=== PATIENT | female | born 1975 | race Caucasian/White ===

== ENCOUNTER 2024-12-22 13:35 | Inpatient (IN) ==
[2024-12-22 14:12] LABS: Basophils # (auto) 0.05 K/uL (0.00-0.20); Basophils % (auto) 0.6 %; Eosinophils # (auto) 0.03 K/uL (0.00-0.50); Eosinophils % (auto) 0.3 %; Hemoglobin 13.8 g/dl (12.0-16.0); Immature Granulocytes # (auto) 0.02 K/uL (0.01-0.20); Immature Granulocytes % (auto) 0.2 %; Lymphocytes % (auto) 22.1 %; Mean Corpuscular Hemoglobin 37.8 pg (25.0-34.0); Mean Corpuscular Hgb Conc 36.3 g/dL (32.0-36.0); Mean Corpuscular Volume 104.1 fL (80.0-100.0); Mean Platelet Volume 10.8 fL (9.4-12.4); Monocytes # (auto) 0.76 K/uL (0.11-0.59); Monocytes % (auto) 8.8 %; Neutrophils # (auto) 5.83 K/uL (1.40-6.50); Platelet Count 205 K/uL (130-400); RDW Coefficient of Variation 11.7 % (11.5-14.5); RDW Standard Deviation 44.9 fL (36.4-46.3); Red Blood Count 3.65 M/uL (4.20-5.40); White Blood Count 8.59 K/ul (4.8-10.8)
--- NOTE | 2024-12-22 14:27 | Emergency Department Note ---
Impression & Plan Abdominal ascites, Cirrhosis of liver, Hypokalemia, Acute hyponatremia ED Provider Note Provider: Nikolay Bates MD CHIEF COMPLAINT: Abdominal swelling HISTORY OF PRESENT ILLNESS: Patient is a 49-year-old female presenting today stating of the past 2 weeks she has had significant increase of abdominal swelling. No abdominal pain or nausea or vomiting or diarrhea. No trauma. No swelling of the legs or arms. Denies chest pain. States maybe with little exertion may be slightly more short of breath than normal. Denies history of prior abdominal swelling like this. No fevers or cough or cold reported. Was seen by her primary doctor about 3 weeks ago for bronchitis and this has resolved. History of alcohol use but states has been sober for the past 42 days. Again denies any abdominal pain. Little bit of early satiety with food intake reported. Has not been measuring her weights. Was an antibiotic and steroid for bronchitis in the middle of November. PAST MEDICAL HISTORY: As noted above MEDICATIONS: Reviewed home medications includes multiple vitamins/supplements SOCIAL HISTORY: Ports history of alcohol abuse but states she has been sober for the past 42 days. PHYSICAL EXAM: GENERAL: alert and oriented in no acute distress on stretcher Head: normocephalic and atraumatic EYES: No injection, discharge or icterus. EOMI. NECK: Trachea midline. ENT: Mucous membranes pink and moist LUNGS: Airway patent. No retractions. Breath sounds clear HEART: Regular rate and rhythm. No chest wall tenderness ABDOMEN: Soft and non-tender, without guarding or rebound. Moderately distended. No masses grossly appreciated. SKIN: Acyanotic, warm, dry, without rashes EXTREMITIES: Without swelling, tenderness or deformity NEUROLOGICAL: No focal deficits. No aphasia. No facial droop or slurred speech. Ambulatory. EK bpm normal sinus rhythm. No PVC or PAC. No acute ST segment elevation or depression with a QTc of 502. Some nonspecific anterior T wave flattening. CONTINUOUS CARDIAC MONITORING: was ordered and showed a heart rate of 80s-100 bpm in normal sinus rhythm Patient's laboratory studies and imaging reviewed. Differential includes Appendicitis, ovarian cyst, ovarian torsion, ectopic , TOA, PID, infections, diverticulitis, UTI, obstruction, mesenteric ischemia, aortic pathology, inflammatory bowel disease, renal colic, PUD, pancreatitis, biliary pathology, hernia, volvulus, constipation, as well as other pathologies. IMPRESSION/MEDICAL DECISION MAKING: Patient only really complaining of abdominal distention and swelling. No other swelling of the lower extremities or heart or liver history reported. Does have a history of alcohol use but states he has been sober over the past 42 days. No jaundice grossly appreciable. No vomiting or diarrhea or fevers. Was on a brief course of doxycycline and prednisone approximately 3 weeks ago with resolving bronchitis. No obvious abdominal masses reported and again benign nontender abdomen. Does seem mild to moderately distended. Basic blood work is sent including LFTs and INR and medical alcohol level. Will obtain abdominal/pelvis CT to further evaluate her swelling but exam is not consistent with peritonitis. Will look for any findings concerning for fluid overload related to possible heart failure, nephrotic syndrome, or hepatic dysfunction. CBC here without significant anemia or leukocytosis. Normal platelet count. Medical alcohol level undetectably low. Chemistries however show hyponatremia slightly improved from previous at 130 as well as hypokalemia which she is known to have in the past at 2.8. Creatinine stable at 0.32 today. Bilirubin 2.1 higher than previous from July 11. Slight AST elevation at 74 but a normal ALT of 19. Alkaline phosphatase just above normal at 108. Lipase normal. Albumin normal at 3.4. Denies any urinary symptoms and doubt a UTI. CT scan evidence of ascites and cirrhotic liver changes. Discussed with GI on- call. Somewhat difficult as the patient does have hyponatremia and hypokalemia for institution of aggressive diuresis. GI recommended the patient come in for paracentesis tomorrow and and monitored start of medication. Discussed patient this versus close outpatient follow-up. After long discussion she opted to stay. Believe this will expedite her workup and evaluation. Given some IV potassium and a small amount of Lasix here initially for diuresis. Again do not feel emergent indication for diagnostic paracentesis tonight but will likely benefit from a therapeutic one by radiology tomorrow. Reached out to the hospitalist team. DIAGNOSIS: Abdominal ascites, liver cirrhosis, hyponatremia, hypokalemia DISPOSITION: Hospitalist will evaluate Patient was agreeable with this plan. Past Med/Surg History Problem List (Updated 12/22/24 @ 17:41 by Nikolay Bates M.D.) Acute hyponatremia (Acute) Hypokalemia (Acute) Cirrhosis of liver (Acute) Abdominal ascites (Acute) Elevated liver enzymes Hyperlipidemia Current smoker Sensorineural hearing loss (SNHL) of right ear with restricted hearing of left ear Allergic rhinitis Tinnitus of right ear Mixed conductive and sensorineural hearing loss of right ear with restricted hearing of left ear Acute serous otitis media of right ear Surgical History (Updated 12/18/21 @ 09:16 by [employer] AG) History of knee surgery History of tubal ligation Family History (Updated 12/18/21 @ 09:17 by UFOstart AG) Family/Other Environmental allergies per new patient form-"most of them" Father Asthma Other No family history of adverse response to anesthesia No family history of bleeding disorder Social History (Updated 12/18/21 @ 09:18 by UFOstart AG) Smoking Status: Current every day smoker Tobacco Type: Cigarettes Age Started Using Tobacco: 26; packs per day: 0.5; Do You Dip or Chew Tobacco: No; Hx Alcohol Use: Yes Alcohol type: beer Alcohol Intake Frequency Comment: occasional Hx Substance Use: No marital status: current occupational status: employed 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 Feels Safe at Home: Yes Allergies Allergies Allergy/AdvReac Type Severity Reaction Status Date / Time No Known Allergies Allergy Verified 12/22/24 16:07 Home Meds Home Medications Medication Instructions Recorded Confirmed multivitamin 1 tab PO HS 06/09/19 12/22/24 calcium acetate 800 tab PO HS 12/02/24 12/22/24 turmeric root extract 500 mg 1,000 mg PO DAILY 12/02/24 12/22/24 capsule albuterol sulfate 5 mg/mL(0.5 %) 2.5 mg inhalation Q6H PRN 12/22/24 12/22/24 solution for nebulization Shortness Of Breath Or Wheezing elderberry fruit 350 mg capsule 350 mg PO HS 12/22/24 12/22/24 omega-3 fatty acids-fish oil 684 1 cap PO HS 12/22/24 12/22/24 mg-1,200 mg capsule,delayed release Results & Data (ED) Vital Signs Vital Signs - 24 hr 12/22/24 13:38 12/22/24 13:50 12/22/24 14:04 Temperature 36.5 C Temperature Source Temporal Artery Scan Pulse Rate 119 H 102 H 98 H Pulse Rate [Apical] Pulse Strength Normal Respiratory Rate 17 Respiratory Effort / Characteristics Non-Labored Spontaneous Respiratory Depth Normal Respiratory Pattern Regular Blood Pressure 127/90 Blood Pressure [Right Arm] Blood Pressure Mean 102 Blood Pressure Mean [Right Arm] Blood Pressure Position Sitting Pulse Oximetry 98 98 Oxygen Delivery Method Room Air Room Air Sepsis Recent Fever Within 48 Hours No Sepsis New/Unexplained Change in Mental Status No Sepsis Action Taken by Nursing No Action Required 12/22/24 15:35 12/22/24 17:51 12/22/24 19:00 Temperature Temperature Source Pulse Rate Pulse Rate [Apical] 80 92 H 100 H Pulse Strength Respiratory Rate 16 14 16 Respiratory Effort / Characteristics Non-Labored Spontaneous Non-Labored Spontaneous Respiratory Depth Respiratory Pattern Blood Pressure Blood Pressure [Right Arm] 121/82 118/80 108/78 Blood Pressure Mean Blood Pressure Mean [Right Arm] 95 92 88 Blood Pressure Position Pulse Oximetry 94 97 96 Oxygen Delivery Method Room Air Room Air Room Air Sepsis Recent Fever Within 48 Hours Sepsis New/Unexplained Change in Mental Status Sepsis Action Taken by Nursing Laboratory Data 12/22/24 13:55 12/22/24 13:55 Lab Results 12/22/24 12/22/24 Range/Units 13:55 15:09 WBC 8.59 (4.8-10.8) K/ul RBC 3.65 L (4.20-5.40) M/uL Hgb 13.8 (12.0-16.0) g/dl Hct 38.0 (37.0-47.0) % MCV 104.1 H (80.0-100.0) fL MCH 37.8 H (25.0-34.0) pg MCHC 36.3 H (32.0-36.0) g/dL RDW Std Deviation 44.9 (36.4-46.3) fL RDW Coeff of Rip 11.7 (11.5-14.5) % Plt Count 205 (130-400) K/uL MPV 10.8 (9.4-12.4) fL Immature Gran % (Auto) 0.2 % Neut % (Auto) 68.0 % Lymph % (Auto) 22.1 % [place] % (Auto) 8.8 % Eos % (Auto) 0.3 % Baso % (Auto) 0.6 % Neut # (Auto) 5.83 (1.40-6.50) K/uL Lymph # (Auto) 1.90 (1.20-3.40) K/uL [place] # (Auto) 0.76 H (0.11-0.59) K/uL Eos # (Auto) 0.03 (0.00-0.50) K/uL Baso # (Auto) 0.05 (0.00-0.20) K/uL Immature Gran # (Auto) 0.02 (0.01-0.20) K/uL PT 14.0 H (9.0-12.0) Seconds INR 1.3 H (0.9-1.1) Sodium 130 L (136-145) mmol/L Potassium 2.8 L (3.5-5.1) mmol/L Chloride 88 L (98-107) mmol/L Carbon Dioxide 35 H (21-32) mmol/L Anion Gap 7 (3-11) BUN 2 L (6-23) mg/dl Creatinine 0.32 L (0.6-1.2) mg/dl Est Cr Clr Drug Dosing 172.1 ml/min eGFR 126.37 BUN/Creatinine Ratio 6.3 L (10-20) Glucose 122 H (70-99(Fasting)) mg/dl Calcium 8.7 (8.6-10.3) mg/dl Magnesium 1.3 L (1.7-2.4) mg/dl Total Bilirubin 2.1 H (0.2-1.0) mg/dl AST 74 H (13-39) U/L ALT 19 (7-52) U/L Alkaline Phosphatase 108 H (34-104) U/L Troponin I High Sens 11.3 (0-14) pg/ml B-Natriuretic Peptide 59 (0-100) pg/ml Total Protein 7.0 (6.0-8.3) gm/dl Albumin 3.4 (3.4-5.0) gm/dl Globulin 3.6 (2.5-4.0) gm/dl Albumin/Globulin Ratio 0.9 (0.9-2) Lipase 25 (11-82) U/L HCG, Qual Negative (Negative) Urine Color Dark Yellow Urine Appearance Cloudy A (Clear) Urine pH 6.0 (4.5-7.5) Ur Specific [place] 1.014 (1.000-1.030) Urine Protein Trace H (Negative) Urine Glucose (UA) Negative (Negative) Urine Ketones Trace H (Negative) Urine Blood Negative (Negative) Urine Nitrite Negative (Negative) Urine Bilirubin 1+ H (Negative) Urine Urobilinogen Negative (Negative) Ur Leukocyte Esterase 2+ H (Negative) Urine WBC (Auto) 21-50 H (0-5) /hpf Urine RBC (Auto) 0-2 (0-2) /hpf U Hyaline Cast (Auto) 0-2 (0-2) /lpf U Epithel Cells (Auto) >20 H (0-2) /hpf Urine Bacteria (Auto) 4+ H (None Seen) Urine Mucus Present A (None Prsent) Ethyl Alcohol mg/dL < 10.0 (<10.0) mg/dl Administered Medications Potassium Chloride ([place] / Wtr) 10 meq in 100 mls @ 100 mls/hr IV Q1H NAIN Stop: 12/22/24 19:44 Last Admin: 12/22/24 18:59 Dose: 100 mls/hr Documented By: Infusion: 12/22/24 18:59 Dose: Infused Documented By: Admin: 12/22/24 17:55 Dose: 100 mls/hr Documented By: GABRIEL Discontinued Medications Furosemide (Furosemide Inj 20 Mg/2 Ml Vial) 20 mg IV ONE ONE Stop: 12/22/24 17:42 Last Admin: 12/22/24 17:52 Dose: 20 mg Documented By: GABRIEL Ioversol (Optiray 320 100ml) 90 ml IV ONCE ONE Stop: 12/22/24 15:14 Last Admin: 12/22/24 15:13 Dose: 90 ml Documented By: JULEE Potassium Chloride (Potassium Chloride Crtab 20 Meq Tabcr) 40 meq PO NOW STA Stop: 12/22/24 17:42 Last Admin: 12/22/24 17:50 Dose: 40 meq Documented By: GABRIEL Imaging Data Radiologist's Impression: Abdomen/Pelvis CT 12/22/24 14:09 CT SCAN OF THE ABDOMEN AND PELVIS WITH IV CONTRAST CLINICAL HISTORY: Abdominal swelling. COMPARISON STUDY: None. TECHNIQUE: Following the IV administration of 90 cc of Optiray 320, CT scan of the abdomen and pelvis is performed from the lung bases to the proximal femora. Images are reviewed in the axial, sagittal, and coronal planes. IV contrast was administered without complication. A dose lowering technique was utilized adhering to the principles of ALARA. CT DOSE: 606.31 mGy.cm FINDINGS: Visualized lung bases are unremarkable. No pneumatosis, free air or portal venous gas is present. The liver is mildly enlarged and heterogeneous with enlargement of the caudate lobe. There is nodularity of the liver surface indicative of cirrhosis. There is probable hepatic steatosis. No well-defined hepatic lesions are identified although sensitivity for detection of hypervascular lesions is diminished on portal venous phase exam. The main, left and right portal veins are patent. The size of the spleen is normal. Large volume ascites is present. Small abdominal varices are present including esophageal varices. The adrenal glands, kidneys and pancreas are normal. No hydronephrosis. Gallbladder wall thickening is likely related to cirrhosis. There is wall thickening of the ascending colon and rectum. There is colonic diverticulosis without evidence for acute diverticulitis. There is no evidence for a bowel obstruction. Moderate plaque within the abdominal aorta. IMPRESSION: 1. Hepatic steatosis and cirrhotic liver with manifestations of portal hypertension including large volume ascites and small varices. 2. Right colon wall thickening and possible rectal wall thickening. This is likely related to portal hypertension although a nonspecific colitis could appear similar. 3. No bowel obstruction. 4. Colonic diverticulosis. No evidence for acute diverticulitis. ACT 112: Negative or not required by law. Electronically signed by: John Arroyo M.D. 12/22/2024 3:36 PM Discharge Plan Visit Data Chief Complaint: Abdominal Pain Stated Complaint: BELLY FLUID, BELLY PAIN ED Provider: Nikolay Bates Discharge Problem: Abdominal ascites, Cirrhosis of liver, Hypokalemia, Acute hyponatremia Patient Disposition: Being Evaluated by Hospitalist Condition: Fair Forms Stand Alone Forms: My [facility] [place] [employer] Prescriptions Prescriptions: No Action calcium acetate 800 tab PO HS multivitamin tablet 1 tab PO HS turmeric root extract 500 mg capsule 1,000 mg PO DAILY [place] 3 Fish Oil 684-1,200 mg Capsule,Delayed Release(Dr/Ec) 1 cap PO HS elderberry fruit 350 mg Capsule 350 mg PO HS albuterol sulfate 5 mg/mL solution for nebulization 2.5 mg inhalation Q6H PRN (Reason: Shortness Of Breath Or Wheezing) Referrals Referrals: Tasha Kc DO [Primary Care Provider] -
[2024-12-22 14:34] LABS: Albumin Globulin Ratio 0.9 (0.9-2); Albumin Level 3.4 gm/dl (3.4-5.0); BUN Creatinine Ratio 6.3 (10-20); Bilirubin,Total 2.1 mg/dl (0.2-1.0); Calcium 8.7 mg/dl (8.6-10.3); Creatinine Clr Calc Pharmacy 172.1 ml/min; Globulin 3.6 gm/dl (2.5-4.0); Potassium 2.8 mmol/L (3.5-5.1)
[2024-12-22 14:37] LABS: INR 1.3 (0.9-1.1)
[2024-12-22 14:40] LABS: Troponin I High Sensitivity 11.3 pg/ml (0-14)
[2024-12-22 14:46] LABS: Pregnancy Test, Serum Negative (Negative)
[2024-12-22] MEDS: OPTIRAY 320 100ml IV ONE (15:13)
--- NOTE | 2024-12-22 15:37 | CT Scan Report ---
CT SCAN OF THE ABDOMEN AND PELVIS WITH IV CONTRAST CLINICAL HISTORY: Abdominal swelling. COMPARISON STUDY: None. TECHNIQUE: Following the IV administration of 90 cc of Optiray 320, CT scan of the abdomen and pelvi s is performed from the lung bases to the proximal femora. Images are reviewed in the axial, sagittal , and coronal planes. IV contrast was administered without complication. A dose lowering technique wa s utilized adhering to the principles of ALARA. CT DOSE: 606.31 mGy.cm FINDINGS: Visualized lung bases are unremarkable. No pneumatosis, free air or portal venous gas is pr esent. The liver is mildly enlarged and heterogeneous with enlargement of the caudate lobe. There is nodularity of the liver surface indicative of cirrhosis. There is probable hepatic steatosis. No well -defined hepatic lesions are identified although sensitivity for detection of hypervascular lesions i s diminished on portal venous phase exam. The main, left and right portal veins are patent. The size of the spleen is normal. Large volume ascites is present. Small abdominal varices are present includi ng esophageal varices. The adrenal glands, kidneys and pancreas are normal. No hydronephrosis. Gallbl adder wall thickening is likely related to cirrhosis. There is wall thickening of the ascending colon and rectum. There is colonic diverticulosis without evidence for acute diverticulitis. There is no e vidence for a bowel obstruction. Moderate plaque within the abdominal aorta. IMPRESSION: 1. Hepatic steatosis and cirrhotic liver with manifestations of portal hypertension including large v olume ascites and small varices. 2. Right colon wall thickening and possible rectal wall thickening. This is likely related to portal hypertension although a nonspecific colitis could appear similar. 3. No bowel obstruction. 4. Colonic diverticulosis. No evidence for acute diverticulitis. ACT 112: Negative or not required by law. Electronically signed by: John Arroyo M.D. 12/22/2024 3:36 PM
[2024-12-22 15:40] LABS: Appearance Urine Cloudy (Clear); Bacteria Urine Automated 4+ (None Seen); Bilirubin Urine 1+ (Negative); Blood Urine Negative (Negative); Cast Urine Automated 0-2 /lpf (0-2); Color Urine Dark Yellow; Epithelial Cell Urine Auto >20 /hpf (0-2); Glucose Urine UA Negative (Negative); Ketones Urine Trace (Negative); Leukocyte Esterase Urine 2+ (Negative); Mucus Urine Present (None Prsent); Nitrite Urine Negative (Negative); Protein Urine Trace (Negative); RBC Urine Automated 0-2 /hpf (0-2); Specific Gravity Urine 1.014 (1.000-1.030); Urobilinogen Urine Negative (Negative); WBC Urine Automated 21-50 /hpf (0-5)
[2024-12-22] MEDS: POTASSIUM CHLORIDE CRTAB 20 MEQ TABCR PO STA (17:50)
[2024-12-22] MEDS: FUROSEMIDE INJ 20 MG/2 ML VIAL IV ONE (17:52)
[2024-12-22] MEDS: POTASSIUM CHLORIDE / WTR 10 MEQ/100 ML PLCT IV SCH (17:55)
--- NOTE | 2024-12-22 18:05 | History & Physical Report ---
Date of Service December 22, 2024 Assessment & Plan (1) Abdominal ascites: (2) Acute hyponatremia: Plan 49-year-old female history of alcohol abuse presents with increasing abdominal girth and found to have ascites on presentation. She has significant associate electrolyte abnormalities including hyponatremia hypokalemia magnesium is currently pending. Steatosis and cirrhosis are seen on CT imaging, Meld score is 18 points with 6% 3 month mortality # ascites, cirrhosis and steatohepatitis, portal veins are patent on CT will not do ultrasound, for IR paracentesis 12/23 if can accommodate, diagnostic and therapeutic, will check Hepatitis serology, ceruloplasmin. iron, some of etio logy will be determined with ascitic fluid analysis, does not appear to have sbp by symptoms at this time #alcohol use, reportedly no use for some time, macrocytosis, will use thiamine and check B12 and Folate, use po protonix at this time #hyponatremia, clinically looks a bit dry, will check osm and urine sodium replete potassium and check magnesium As needed Ativan for anxiety nicotine patch for smoking DVT prevention or SCDs History of Present Illness Primary Care Provider: Tasha Kc, 49-year-old female presenting with 2 weeks of increase of abdominal swelling. No abdominal pain or nausea or vomiting or diarrhea. No trauma. No swelling of the legs or arms. Denies chest pain. States maybe with little short of breath on exertion. Denies history of prior abdominal swelling like this. No fevers or cough or cold reported. Was seen by her primary doctor about 3 weeks ago for bronchitis and was one antibiotic and steroid for bronchitis,this has resolved. History of alcohol use but states has been sober for the past 42 days. Patient says she stopped drinking due to abdominal pain and increasing abdominal girth. Initially she had some anxiety perhaps some mild hallucinations but did not seek medical care. She currently suffers from early satiety with food intake reported. Has not been measuring her weights. She is a chronic daily smoker Has macrocytosis, profound hypokalemia replete and magnesium repleat and recheck Allergies Allergy/AdvReac Type Severity Reaction Status Date / Time No Known Allergies Allergy Verified 12/22/24 16:07 Home Medications Medication Instructions Recorded Confirmed Type multivitamin 1 tab PO HS 06/09/19 12/22/24 History calcium acetate 800 tab PO HS 12/02/24 12/22/24 History turmeric root extract 500 mg 1,000 mg PO DAILY 12/02/24 12/22/24 History capsule albuterol sulfate 5 mg/mL(0.5 %) 2.5 mg inhalation Q6H PRN 12/22/24 12/22/24 History solution for nebulization Shortness Of Breath Or Wheezing elderberry fruit 350 mg capsule 350 mg PO HS 12/22/24 12/22/24 History omega-3 fatty acids-fish oil 684 1 cap PO HS 12/22/24 12/22/24 History mg-1,200 mg capsule,delayed release Past Med/Surg History Problem List (Updated 12/22/24 @ 17:41 by Nikolay Bates M.D.) Acute hyponatremia (Acute) Hypokalemia (Acute) Cirrhosis of liver (Acute) Abdominal ascites (Acute) Elevated liver enzymes Hyperlipidemia Current smoker Sensorineural hearing loss (SNHL) of right ear with restricted hearing of left ear Allergic rhinitis Tinnitus of right ear Mixed conductive and sensorineural hearing loss of right ear with restricted hearing of left ear Acute serous otitis media of right ear Surgical History (Updated 12/18/21 @ 09:16 by Huddler) History of knee surgery History of tubal ligation Family History (Updated 12/18/21 @ 09:17 by Huddler) Family/Other Environmental allergies per new patient form-"most of them" Father Asthma Other No family history of adverse response to anesthesia No family history of bleeding disorder Social History (Updated 12/18/21 @ 09:18 by Huddler) Smoking Status: Current every day smoker Tobacco Type: Cigarettes Age Started Using Tobacco: 26; packs per day: 0.5; Do You Dip or Chew Tobacco: No; Hx Alcohol Use: Yes Alcohol type: beer Alcohol Intake Frequency Comment: occasional Hx Substance Use: No marital status: 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 Early satiety no dysuria, hematuria or frequency no focal joint pain or swelling no back pain, CVA tenderness or radicular pain no bruising, bleeding or rashes no focal signs of weakness or numbness or altered sensation no complaints of anxiety or depression.. Physical Exam Physical Exam: The patient appeared thin and chronically ill she is without jaundice or icterus Vital signs as documented. Head exam is normocephalic atraumatic Neck is without JVD, thyromegaly, or carotid bruits. Lungs are clear to auscultation, no focal loss of breath sounds Cardiac exam, Rhythm is regular.. No murmurs, rubs or gallops. Abdominal exam reveals normal bowel sounds distended and dull to percussion protuberant Extremities are nonedematous and both pedal pulses are present Neurologic exam is alert and oriented, no focal loss of strength or sensation Skin is without bruises or rashes appears clinically dehydrated Psychologically is without concerns for anxiety or depression.. Results & Data Results & Data Vital Signs (Past 12 Hours) Vital Signs Temp Pulse Pulse Resp BP BP Pulse Ox 12/22/24 17:51 92 H 14 118/80 97 12/22/24 15:35 80 16 121/82 94 12/22/24 14:04 98 H 98 12/22/24 13:50 102 H 12/22/24 13:38 97.7 F 119 H 17 127/90 98 O2 Del Method 12/22/24 17:51 Room Air 12/22/24 15:35 Room Air 12/22/24 14:04 Room Air 12/22/24 13:50 12/22/24 13:38 Room Air Laboratory Results Reviewed CBC reviewed chemistry Code Status & VTE Plan VTE Prophylaxis Plan VTE Prophylaxis will be ordered: Yes PG Care Time/CCT Total # of Minutes Spent Total Time Spent with Patient: Total time spent is greater than 50% in coordination of care (as documented) at patient's floor/unit and/or counseling patient: Coding Level of Care Code 06433 INT INP/OBS CARE 3/75MIN Diagnoses Abdominal ascites R18.8 Acute hyponatremia E87.1
[2024-12-22 18:21] LABS: Magnesium 1.3 mg/dl (1.7-2.4)
[2024-12-22] MEDS ORDERED: ONDANSETRON INJ 2 MG/ML 2 ML VIAL IV PRN (21:09)
[2024-12-22] MEDS ORDERED: LORazepam 0.5 MG TAB PO PRN (21:09)
[2024-12-22] MEDS: THIAMINE HCL 200 MG in SODIUM CHLORIDE 0.9% 50 ML IV STA (21:30)
[2024-12-22] MEDS: MAGNESIUM SULFATE / D5W 1 GM/100 ML BAG IV SCH (22:07)
[2024-12-22] MEDS: ALBUMIN 25% 25 GM/100 ML VIAL IV SCH (22:08)
--- OUTSIDE RECORDS SUMMARY | 2024-12-22 22:15 | External Medical Summary | Summary of Care ---
Author Name Unknown Organization [facility] Address [address] [place] [address] Phone [phone] Care Team Providers Care Barrel Inspector Tight Name Role Phone Tasha Kc DO Primary Care Provider + Encounter Details Date Type Department Care Team (Late st Contact Info) Description 12/02/2024 Orders Only Radiology, [place] [address] [place] [id number] Requisition, External Radiology [address] [place] [address] Cough, unspecified*; Other forms of dyspnea Allergies No known active allergiesdocumented as of this encounter (statuses as of 12/02/2024) Medications Multiple Vitamins-Minerals (ROB MULTIVITAMIN FOR WOMEN) Tablet Take 1 Tab by mouth daily. Active Calcium 500-125 MG-UNIT Tablet Take 1 Tab by mouth three times a day with meals. Active omega-3 1000 MG CAPS Take by mouth. Activ e ELDERBERRY 500 MG OR CAPS Active Zinc 50 MG Oral Tablet Take 1 Tablet by mouth in the morning. Active Turmeric 500 MG Oral Capsule Take 1 Capsule by mouth in the morning. Active Benzonatate 200 MG Oral Capsule 4 Active predniSONE 10 MG Oral Tablet (Deltasone)Indica tions:LRTI (lower respiratory tract infection) Take 5 tabs for 2 days, 4 tabs for 2 days, 3 tabs for 2 days, 2 tabs for 2 days 1 tab for 2 days 30 Tablet 4 Active Albuterol Sulfate (5 MG/ML) 0.5% Inhalation Nebulization Solution (Proventil)Indica tions:LRTI (lower respiratory tract infection) Inhale 2.5 mg via nebulizer every 4 hours as needed for Wheezing. Combine 0.5 mL with 2.5 mL of sterile normal saline solution 20 mL 11 Active documented as of this encounter (statuses as of 12/02/2024) Active Problems No known active problems documented as of this encounter (statuses as of 12/02/2024) Social History Tobacco Use Types Packs/Day Years Used Date Smoking Tobacco: Every Day Smokeless Tobacco: Never Alcohol Use Standard Drinks/Week Comments Yes 0 (1 standard drink = 0.6 oz pur e alcohol) occasional Utilities Answer Date Recorded Do you have trouble paying y our heating, water, or electric bill? (Adult - for ages 18 years and over) Not on file 02/04/2024 Is your family able to pay t he heat, water, or electric bill? (Household - for ages 0-17 years) Not on file 02/04/2024 Does your family have access to good internet? (Household - for ages 0-17 years) Not on file 02/04/2024 Social Connections Answer Date Recorded How often do you feel lonely or isolated from those around you? (Adult - for ages 18 years and over) Not on file 02/04/2024 Comments No Sex and Gender Information Value Date Recorded Sex Assigned at Not on file Legal Sex Female 6:31 AM EST Gender Identity Not on file Sexual Orientation Not on file documented as of this encounter Plan of Treatment Health Maintenance Due Date Last Done Comments Lipid Panel 1973 Depression Screening 1985 HIV Screening 1988 Hepatitis C Screening 1991 DTap/Tdap Vaccines (1 - Tdap) 1992 Hepatitis B Vaccine (1 of 3 - 19+ 3-dose series) 1992 Pneumococcal Vaccine: 50+ Ye ars (1 of 2 - PCV) 1992 Pap Smear 1994 Cervical Cancer Screening 2003 HPV/Co-Test 2003 Mammogram 2013 Cologuard 2018 Colonoscopy 2018 Colorectal Cancer Screening 2018 Fecal Occult Blood Test 2018 Sigmoidoscopy 2018 Zoster Vaccines (1 of 2) 2023 COVID-19 Vaccine (2023-2 5 season) 2024 Influenza Vaccine (FLU shot) (Season Ended) 2025 HPV (Gardasil) Vaccine Aged Out No lo nger eligible based on patient's age to complete this topic MENINGOCOCCAL (MENACTRA/MENVEO) Aged Out No longer eligible based on patient's age to complete this topic Meningitis B Vaccine (Bexsero/Trumemba) Aged Out No longer eligible b ased on patient's age to complete this topic documented as of this encounter Medical Devices Not on filedocumented as of this encounter Procedures Procedure Name Priority Date/Time Associated Diagnosis Comments XR CHEST 2 VIEWS STAT 12/02/2024 11:3 9 AM EDT Cough, unspecified Other forms of dyspnea documented in this encounter Results * XR CHEST 2 VIEWS (12/02/2024 11:39 AM EDT) Anatomical Region Laterality Modality Chest Digital Radiogra phy 12/02/2024 11:4 4 AM EDT Impressions 12/02/2024 11:41 AM EDT IMPRESSION No active disease. Narrative 12/02/2024 11:41 AM EDT EXAM XR CHEST 2 VIEWS - 12/02/2024 11:39 am HISTORY "cough unspecified" TECHNIQUE Frontal and lateral views of the chest were obtained. COMPARISON XR CHEST 2 VIEWS, ACC: [id number], dated 2019-06-09 12:53:51 FINDINGS The lungs are clear. There is no pleural effusion or pneumothorax. The cardiomediastinal silhouette is within normal limits. Procedure Note Juan Pablo Ahumada MD - 12/02/2024 EXAM XR CHEST 2 VIEWS - 12/02/2024 11:39 am HISTORY "cough unspecified" TECHNIQUE Frontal and lateral views of the chest were obtained. COMPARISON XR CHEST 2 VIEWS, ACC: [id number], dated 2019-06-09 12:53:51 FINDINGS The lungs are clear. There is no pleural effusion or pneumothorax. Thecardiomediastinal silhouette is within normal limits. IMPRESSION IMPRESSION No active disease. [facility] ([facility]) Final Result documented in this encounter Visit Diagnoses Diagnosis Cough, unspecified- Primary Other forms of dyspnea documented in this encounter Care Teams Barrel Inspector Tight Relationship Specialty Start Date End Date Tasha Kc DO [address] [place] [id number] PCP - General Family Medicine 12/05/21 documented as of this encounter
[2024-12-22] MEDS: NICOTINE 14 MG/24 HR PATCH TD SCH (22:23)
[2024-12-23 06:55] LABS: Hematocrit (blood only) 30.7 % (37.0-47.0); Mean Corpuscular Hemoglobin 37.3 pg (25.0-34.0); Mean Corpuscular Hgb Conc 35.8 g/dL (32.0-36.0); Mean Corpuscular Volume 104.1 fL (80.0-100.0); Mean Platelet Volume 10.4 fL (9.4-12.4); Platelet Count 150 K/uL (130-400); RDW Standard Deviation 45.8 fL (36.4-46.3); Red Blood Count 2.95 M/uL (4.20-5.40); White Blood Count 6.76 K/ul (4.8-10.8)
[2024-12-23 07:43] LABS: Albumin Globulin Ratio 1.2 (0.9-2); Albumin Level 3.2 gm/dl (3.4-5.0); BUN Creatinine Ratio 10.3 (10-20); Bilirubin,Total 1.2 mg/dl (0.2-1.0); Calcium 7.8 mg/dl (8.6-10.3); Creatinine Clr Calc Pharmacy 189.8 ml/min; Globulin 2.6 gm/dl (2.5-4.0); Magnesium 1.8 mg/dl (1.7-2.4); Total Protein 5.8 gm/dl (6.0-8.3)
[2024-12-23 07:52] LABS: Folate (Folic Acid),Ser orPlas 13.64 ng/ml (>5.38)
[2024-12-23] MEDS: THIAMINE HCL 200 MG in SODIUM CHLORIDE 0.9% 50 ML IV SCH (08:52)
[2024-12-23] MEDS: PANTOprazole 40 MG TAB PO SCH (08:52)
[2024-12-23 09:28] LABS: Hep B Surface Ag with confirm Negative (Negative)
[2024-12-23 09:33] LABS: Hep C Ab Rflx HepCQuant RNA Negative (Negative)
--- NOTE | 2024-12-23 10:13 | Gastrointestinal Consultation ---
Date of Consultation December 23, 2024 Assessment & Plan (1) Cirrhosis of liver: 49 year old female presenting w/ abdominal distention, CT imaging concerning for new diagnosis of cirrhosis w/ large amount of ascites. 1. Cirrhosis management - MELD 10 - Follow liver serology - Establish w/ hepatology as an OP - MELD labs every 6 months - ABD imaging w/ AFP every 6 months - EGD every 1-2 years - No ETOH - No NSAIDs - Avoid hepatotoxin - Low NA diet, less than 2G daily - Less than 2G acetaminophen containing products daily 2. New ascites - Therapeutic and diagnostic paracentesis - Follow fluid studies - Albumin 25% 25G before and after I spent a total of 60 minutes on the date of service in review of patient's record, and previously obtained information in person and appropriate medical visit, discussion and education of plan, with patient and/or caregiver, placing orders for tests/referral/procedures as medically necessary and documentation of pertinent clinical information in patient's medical records for their visit today. Supervising Physician Co-Signing Physician Notes I personally saw and examined the patient. I have reviewed the chart and agree with the documentation provided by the TIME ANALYSIS CLERK including discussion about the assessment, treatment and plan. Briefly, 49 year old female w/ history of hyperlipidemia and others below admitted though the ED w/ abdominal distention - GI asked to evalaute for cirrhosis/ascites. She has had issues w/ weakness/fatigue and difficulty sleeping for about a year. Endorses increased ETOH intake during this time to aid in improved sleep. She noted about 2-3 months ago she developed abd fullness, decreased appetite and distention. She stopped ETOH intake at this time and suggests she been ETOH free for about 45 days. Regarding her history of ETOH use, suggests she could drink about 6-7 liquor based drinks a day or have a total of 6-7 drinks a week. AST is greater than ALT and findings are suggestive of alcoholic hepatitis with alcoholic cirrhosis. This is now complicated with ascites and some hyponatremia and hypokalemia. She will need a large-volume paracentesis sent for cell count total protein albumin and cytology. We cannot start diuretics until her sodium is above 130. She needs to be on a 2000 mg sodium diet. She will need outpatient hepatology follow-up with Dr. Armenta at [facility]. She needs an EGD colonoscopy ultrasound alpha-fetoprotein every 6 months. Long discussion with patient about alcohol abstinence and low-salt diet. History of Present Illness Reason for Consultation: new ascites Requesting Physician: Dylan Jordan MD Attending Physician: Dylan Jordan MD History of Present Illness 49 year old female w/ history of hyperlipidemia and others below admitted though the ED w/ abdominal distention - GI asked to evalaute for cirrhosis/asites. Pt was seen and evaluated, chart reviewed. Suggests she was never aware of liver conditions in the past. No family history of liver disease. Notes she has had issues w/ weakness/fatigue and difficulty sleeping for about a year. Endorses increased ETOH intake during this time to aid in improved sleep. She noted about 2-3 months ago she developed abd fullness, decreased appetite and distention. She stopped ETOH intake at this time and suggests she been ETOH free for about 45 days. Regarding her history of ETOH use, suggests she could drink about 6-7 liquor based drinks a day or have a total of 6-7 drinks a week. Notes she has been using ETOH this way for many years. Denies any IV/IN drugs to me. PLT 150 INR 1.3 NA 134 K 3 Tbili 1.2 AST 43 ALT 12 ALKP 75 CTAP 2024: Hepatic steatosis and cirrhotic liver with manifestations of portal hypertension including large volume ascites and small varices. Right colon wall thickening and possible rectal wall thickening. This is likely related to portal hypertension although a nonspecific colitis could appear similar. No bowel obstruction. Colonic diverticulosis. No evidence for acute diverticulitis. Allergies Allergy/AdvReac Type Severity Reaction Status Date / Time nitrofurantoin Allergy Unknown Unknown Verified 12/22/24 21:14 [From Macrobid] Home Medications Medication Instructions Recorded Confirmed Type multivitamin 1 tab PO HS 06/09/19 12/22/24 History calcium acetate 800 tab PO HS 12/02/24 12/22/24 History turmeric root extract 500 mg 1,000 mg PO DAILY 12/02/24 12/22/24 History capsule albuterol sulfate 5 mg/mL(0.5 %) 2.5 mg inhalation Q6H PRN 12/22/24 12/22/24 History solution for nebulization Shortness Of Breath Or Wheezing elderberry fruit 350 mg capsule 350 mg PO HS 12/22/24 12/22/24 History omega-3 fatty acids-fish oil 684 1 cap PO HS 12/22/24 12/22/24 History mg-1,200 mg capsule,delayed release Patient History Surgical History (Updated 12/18/21 @ 09:16 by [email or web address]) History of knee surgery History of tubal ligation Family History (Updated 12/18/21 @ 09:17 by [email or web address]) Family/Other Environmental allergies per new patient form-"most of them" Father Asthma Other No family history of adverse response to anesthesia No family history of bleeding disorder Social History (Updated 12/18/21 @ 09:18 by [email or web address]) Smoking Status: Current every day smoker Tobacco Type: Cigarettes Age Started Using Tobacco: 26; packs per day: 0.5; Cigarettes Per Day: 1/2 pack; Smoking End Date: pt states she still smokes but has been smoking less; Do You Dip or Chew Tobacco: No; Hx 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) Alcohol type: beer Alcohol Intake Frequency Comment: occasional Hx Substance Use: No Preferred Language: Maldivian Communication Ability: Effective Cashier Parking Lot Required: No Beliefs That Will Affect Care: None marital status: Current Living Situation: Spouse Current Living Situation Comment: lives at home with spouse current occupational status: employed 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 Physical Exam Constitutional: WD/WN, vitals as above Respiratory: normal respiratory effort, lungs clear to auscultation Cardiovascular: Rate/Rhythm: regular rate and regular rhythm No lower extrem edema Gastrointestinal (Abdomen): + ascites, non-tense Skin: no rashes, warm and dry Results & Data Vital Signs (Past 12 Hours) Vital Signs Temp Pulse Pulse Resp BP Pulse Ox O2 Del Method 12/23/24 07:33 99.0 F 85 18 112/72 94 Room Air 12/23/24 06:45 84 12/23/24 04:00 98.4 F 88 18 103/68 96 Room Air 12/23/24 00:00 98.1 F 86 18 104/69 92 Room Air 12/22/24 22:12 88 Laboratory Results 12/23/24 12/23/24 12/22/24 Range/Units 06:39 02:30 15:09 WBC 6.76 (4.8-10.8) K/ul RBC 2.95 L (4.20-5.40) M/uL Hgb 11.0 L (12.0-16.0) g/dl Hct 30.7 L (37.0-47.0) % MCV 104.1 H (80.0-100.0) fL MCH 37.3 H (25.0-34.0) pg MCHC 35.8 (32.0-36.0) g/dL RDW Std Deviation 45.8 (36.4-46.3) fL RDW Coeff of Rip 12.0 (11.5-14.5) % Plt Count 150 (130-400) K/uL MPV 10.4 (9.4-12.4) fL Immature Gran % (Auto) % Neut % (Auto) % Lymph % (Auto) % [place] % (Auto) % Eos % (Auto) % Baso % (Auto) % Neut # (Auto) (1.40-6.50) K/uL Lymph # (Auto) (1.20-3.40) K/uL [place] # (Auto) (0.11-0.59) K/uL Eos # (Auto) (0.00-0.50) K/uL Baso # (Auto) (0.00-0.20) K/uL Immature Gran # (Auto) (0.01-0.20) K/uL PT (9.0-12.0) Seconds INR (0.9-1.1) Sodium 134 L (136-145) mmol/L Potassium 3.0 L (3.5-5.1) mmol/L Chloride 97 L (98-107) mmol/L Carbon Dioxide 33 H (21-32) mmol/L Anion Gap 4 (3-11) BUN 3 L (6-23) mg/dl Creatinine 0.29 L (0.6-1.2) mg/dl Est Cr Clr Drug Dosing 189.8 ml/min eGFR 129.40 BUN/Creatinine Ratio 10.3 (10-20) Glucose 128 H (70-99(Fasting)) mg/dl Osmolality (280-300) mOsm/kg Calcium 7.8 L (8.6-10.3) mg/dl Magnesium 1.8 (1.7-2.4) mg/dl Total Bilirubin 1.2 H (0.2-1.0) mg/dl AST 43 H (13-39) U/L ALT 12 (7-52) U/L Alkaline Phosphatase 75 (34-104) U/L Troponin I High Sens (0-14) pg/ml B-Natriuretic Peptide (0-100) pg/ml Total Protein 5.8 L (6.0-8.3) gm/dl Albumin 3.2 L (3.4-5.0) gm/dl Globulin 2.6 (2.5-4.0) gm/dl Albumin/Globulin Ratio 1.2 (0.9-2) Ceruloplasmin Pending Lipase (11-82) U/L Vitamin B12 1087 H (180-914) pg/ml Folate 13.64 (>5.38) ng/ml HCG, Qual (Negative) Urine Color Dark Yellow Urine Appearance Cloudy A (Clear) Urine pH 6.0 (4.5-7.5) Ur Specific [place] 1.014 (1.000-1.030) Urine Protein Trace H (Negative) Urine Glucose (UA) Negative (Negative) Urine Ketones Trace H (Negative) Urine Blood Negative (Negative) Urine Nitrite Negative (Negative) Urine Bilirubin 1+ H (Negative) Urine Urobilinogen Negative (Negative) Ur Leukocyte Esterase 2+ H (Negative) Urine WBC (Auto) 21-50 H (0-5) /hpf Urine RBC (Auto) 0-2 (0-2) /hpf U Hyaline Cast (Auto) 0-2 (0-2) /lpf U Epithel Cells (Auto) >20 H (0-2) /hpf Urine Bacteria (Auto) 4+ H (None Seen) Urine Mucus Present A (None Prsent) Urine Osmolality 393 L (500-800) mOsm/kg Ur Random Sodium 82 mmol/L Ethyl Alcohol mg/dL (<10.0) mg/dl Hepatitis A IgM Ab Pending Hep Bs Antigen Negative (Negative) Hep B Core IgM Ab Pending Hepatitis C Antibody Negative (Negative) 12/22/24 Range/Units 13:55 WBC 8.59 (4.8-10.8) K/ul RBC 3.65 L (4.20-5.40) M/uL Hgb 13.8 (12.0-16.0) g/dl Hct 38.0 (37.0-47.0) % MCV 104.1 H (80.0-100.0) fL MCH 37.8 H (25.0-34.0) pg MCHC 36.3 H (32.0-36.0) g/dL RDW Std Deviation 44.9 (36.4-46.3) fL RDW Coeff of Rip 11.7 (11.5-14.5) % Plt Count 205 (130-400) K/uL MPV 10.8 (9.4-12.4) fL Immature Gran % (Auto) 0.2 % Neut % (Auto) 68.0 % Lymph % (Auto) 22.1 % [place] % (Auto) 8.8 % Eos % (Auto) 0.3 % Baso % (Auto) 0.6 % Neut # (Auto) 5.83 (1.40-6.50) K/uL Lymph # (Auto) 1.90 (1.20-3.40) K/uL [place] # (Auto) 0.76 H (0.11-0.59) K/uL Eos # (Auto) 0.03 (0.00-0.50) K/uL Baso # (Auto) 0.05 (0.00-0.20) K/uL Immature Gran # (Auto) 0.02 (0.01-0.20) K/uL PT 14.0 H (9.0-12.0) Seconds INR 1.3 H (0.9-1.1) Sodium 130 L (136-145) mmol/L Potassium 2.8 L (3.5-5.1) mmol/L Chloride 88 L (98-107) mmol/L Carbon Dioxide 35 H (21-32) mmol/L Anion Gap 7 (3-11) BUN 2 L (6-23) mg/dl Creatinine 0.32 L (0.6-1.2) mg/dl Est Cr Clr Drug Dosing 172.1 ml/min eGFR 126.37 BUN/Creatinine Ratio 6.3 L (10-20) Glucose 122 H (70-99(Fasting)) mg/dl Osmolality 270 L (280-300) mOsm/kg Calcium 8.7 (8.6-10.3) mg/dl Magnesium 1.3 L (1.7-2.4) mg/dl Total Bilirubin 2.1 H (0.2-1.0) mg/dl AST 74 H (13-39) U/L ALT 19 (7-52) U/L Alkaline Phosphatase 108 H (34-104) U/L Troponin I High Sens 11.3 (0-14) pg/ml B-Natriuretic Peptide 59 (0-100) pg/ml Total Protein 7.0 (6.0-8.3) gm/dl Albumin 3.4 (3.4-5.0) gm/dl Globulin 3.6 (2.5-4.0) gm/dl Albumin/Globulin Ratio 0.9 (0.9-2) Ceruloplasmin Lipase 25 (11-82) U/L Vitamin B12 (180-914) pg/ml Folate (>5.38) ng/ml HCG, Qual Negative (Negative) Urine Color Urine Appearance (Clear) Urine pH (4.5-7.5) Ur Specific [place] (1.000-1.030) Urine Protein (Negative) Urine Glucose (UA) (Negative) Urine Ketones (Negative) Urine Blood (Negative) Urine Nitrite (Negative) Urine Bilirubin (Negative) Urine Urobilinogen (Negative) Ur Leukocyte Esterase (Negative) Urine WBC (Auto) (0-5) /hpf Urine RBC (Auto) (0-2) /hpf U Hyaline Cast (Auto) (0-2) /lpf U Epithel Cells (Auto) (0-2) /hpf Urine Bacteria (Auto) (None Seen) Urine Mucus (None Prsent) Urine Osmolality (500-800) mOsm/kg Ur Random Sodium mmol/L Ethyl Alcohol mg/dL < 10.0 (<10.0) mg/dl Hepatitis A IgM Ab Hep Bs Antigen (Negative) Hep B Core IgM Ab Hepatitis C Antibody (Negative) PG Care Time/CCT Total # of Minutes Spent Total Time Spent with Patient: Total time spent is greater than 50% in coordination of care (as documented) at patient's floor/unit and/or counseling patient: Coding Level of Care Code 76220 IN/OBS CONSULT LVL 4,60M Diagnoses Cirrhosis of liver K74.60
--- NOTE | 2024-12-23 13:35 | Hospitalist Progress Note ---
Date of Service December 23, 2024 Assessment & Plan (1) Abdominal ascites: (2) Acute hyponatremia: Plan 49-year-old female history of alcohol abuse presents with increasing abdominal girth and found to have ascites on presentation. She has significant associate electrolyte abnormalities including hyponatremia hypokalemia magnesium is currently pending. Steatosis and cirrhosis are seen on CT imaging, Meld score is 18 points with 6% 3 month mortality # ascites, cirrhosis and steatohepatitis IR paracentesis, diagnostic and therapeutic, should have been done already today GI involved MELD score was 10 Hepatitis serology, ceruloplasmin. iron, pending Low-sodium diet started Patient says that she quit drinking #alcohol use, reportedly no use for some time, macrocytosis, will use thiamine and check B12 and Folate, use po protonix at this time #hyponatremia, clinically looks a bit dry, will check osm and urine sodium replete potassium As needed Ativan for anxiety nicotine patch for smoking DVT prevention or SCDs Admission and Anticipated Discharge Date Admission Date: December 22, 2024 Subjective Patient was seen and examined. She says that she quit drinking 43 days ago. She is waiting for the paracentesis to be done. She says she is hungry Review of Systems Review of Systems: All systems reviewed & are unremarkable except as noted in Subjective Physical Exam Physical Exam: General: Awake, conversant Heart: S1, S2/regular rate and rhythm, no murmur rubs or gallops Lungs: Clear to auscultation bilaterally. Normal effort Abdomen: Soft/nontender/distended abdomen with shifting dullness. Positive bowel sounds Extremities: No clubbing/cyanosis. No edema Behavior: Appropriate, cooperative Results & Data Results & Data Vital Signs (Past 12 Hours) Vital Signs Temp Pulse Pulse Resp BP Pulse Ox O2 Del Method 12/23/24 11:26 37.2 C 72 18 100/67 95 Room Air 12/23/24 07:33 37.2 C 85 18 112/72 94 Room Air 12/23/24 06:45 84 12/23/24 04:00 36.9 C 88 18 103/68 96 Room Air Laboratory Results Abnormal lab results 12/22/24 12/22/24 12/23/24 Range/Units 13:55 15:09 02:30 RBC 3.65 L (4.20-5.40) M/uL Hgb (12.0-16.0) g/dl Hct (37.0-47.0) % MCV 104.1 H (80.0-100.0) fL MCH 37.8 H (25.0-34.0) pg MCHC 36.3 H (32.0-36.0) g/dL [place] # (Auto) 0.76 H (0.11-0.59) K/uL PT 14.0 H (9.0-12.0) Seconds INR 1.3 H (0.9-1.1) Sodium 130 L (136-145) mmol/L Potassium 2.8 L (3.5-5.1) mmol/L Chloride 88 L (98-107) mmol/L Carbon Dioxide 35 H (21-32) mmol/L BUN 2 L (6-23) mg/dl Creatinine 0.32 L (0.6-1.2) mg/dl BUN/Creatinine Ratio 6.3 L (10-20) Glucose 122 H (70-99(Fasting)) mg/dl Osmolality 270 L (280-300) mOsm/kg Calcium (8.6-10.3) mg/dl Magnesium 1.3 L (1.7-2.4) mg/dl Total Bilirubin 2.1 H (0.2-1.0) mg/dl AST 74 H (13-39) U/L Alkaline Phosphatase 108 H (34-104) U/L Total Protein (6.0-8.3) gm/dl Albumin (3.4-5.0) gm/dl Vitamin B12 (180-914) pg/ml Urine Appearance Cloudy A (Clear) Urine Protein Trace H (Negative) Urine Ketones Trace H (Negative) Urine Bilirubin 1+ H (Negative) Ur Leukocyte Esterase 2+ H (Negative) Urine WBC (Auto) 21-50 H (0-5) /hpf U Epithel Cells (Auto) >20 H (0-2) /hpf Urine Bacteria (Auto) 4+ H (None Seen) Urine Mucus Present A (None Prsent) Urine Osmolality 393 L (500-800) mOsm/kg 12/23/24 Range/Units 06:39 RBC 2.95 L (4.20-5.40) M/uL Hgb 11.0 L (12.0-16.0) g/dl Hct 30.7 L (37.0-47.0) % MCV 104.1 H (80.0-100.0) fL MCH 37.3 H (25.0-34.0) pg MCHC (32.0-36.0) g/dL [place] # (Auto) (0.11-0.59) K/uL PT (9.0-12.0) Seconds INR (0.9-1.1) Sodium 134 L (136-145) mmol/L Potassium 3.0 L (3.5-5.1) mmol/L Chloride 97 L (98-107) mmol/L Carbon Dioxide 33 H (21-32) mmol/L BUN 3 L (6-23) mg/dl Creatinine 0.29 L (0.6-1.2) mg/dl BUN/Creatinine Ratio (10-20) Glucose 128 H (70-99(Fasting)) mg/dl Osmolality (280-300) mOsm/kg Calcium 7.8 L (8.6-10.3) mg/dl Magnesium (1.7-2.4) mg/dl Total Bilirubin 1.2 H (0.2-1.0) mg/dl AST 43 H (13-39) U/L Alkaline Phosphatase (34-104) U/L Total Protein 5.8 L (6.0-8.3) gm/dl Albumin 3.2 L (3.4-5.0) gm/dl Vitamin B12 1087 H (180-914) pg/ml Urine Appearance (Clear) Urine Protein (Negative) Urine Ketones (Negative) Urine Bilirubin (Negative) Ur Leukocyte Esterase (Negative) Urine WBC (Auto) (0-5) /hpf U Epithel Cells (Auto) (0-2) /hpf Urine Bacteria (Auto) (None Seen) Urine Mucus (None Prsent) Urine Osmolality (500-800) mOsm/kg Diagnostic Findings Abnormal lab results 12/22/24 12/22/24 12/23/24 Range/Units 13:55 15:09 02:30 RBC 3.65 L (4.20-5.40) M/uL Hgb (12.0-16.0) g/dl Hct (37.0-47.0) % MCV 104.1 H (80.0-100.0) fL MCH 37.8 H (25.0-34.0) pg MCHC 36.3 H (32.0-36.0) g/dL [place] # (Auto) 0.76 H (0.11-0.59) K/uL PT 14.0 H (9.0-12.0) Seconds INR 1.3 H (0.9-1.1) Sodium 130 L (136-145) mmol/L Potassium 2.8 L (3.5-5.1) mmol/L Chloride 88 L (98-107) mmol/L Carbon Dioxide 35 H (21-32) mmol/L BUN 2 L (6-23) mg/dl Creatinine 0.32 L (0.6-1.2) mg/dl BUN/Creatinine Ratio 6.3 L (10-20) Glucose 122 H (70-99(Fasting)) mg/dl Osmolality 270 L (280-300) mOsm/kg Calcium (8.6-10.3) mg/dl Magnesium 1.3 L (1.7-2.4) mg/dl Total Bilirubin 2.1 H (0.2-1.0) mg/dl AST 74 H (13-39) U/L Alkaline Phosphatase 108 H (34-104) U/L Total Protein (6.0-8.3) gm/dl Albumin (3.4-5.0) gm/dl Vitamin B12 (180-914) pg/ml Urine Appearance Cloudy A (Clear) Urine Protein Trace H (Negative) Urine Ketones Trace H (Negative) Urine Bilirubin 1+ H (Negative) Ur Leukocyte Esterase 2+ H (Negative) Urine WBC (Auto) 21-50 H (0-5) /hpf U Epithel Cells (Auto) >20 H (0-2) /hpf Urine Bacteria (Auto) 4+ H (None Seen) Urine Mucus Present A (None Prsent) Urine Osmolality 393 L (500-800) mOsm/kg 12/23/24 Range/Units 06:39 RBC 2.95 L (4.20-5.40) M/uL Hgb 11.0 L (12.0-16.0) g/dl Hct 30.7 L (37.0-47.0) % MCV 104.1 H (80.0-100.0) fL MCH 37.3 H (25.0-34.0) pg MCHC (32.0-36.0) g/dL [place] # (Auto) (0.11-0.59) K/uL PT (9.0-12.0) Seconds INR (0.9-1.1) Sodium 134 L (136-145) mmol/L Potassium 3.0 L (3.5-5.1) mmol/L Chloride 97 L (98-107) mmol/L Carbon Dioxide 33 H (21-32) mmol/L BUN 3 L (6-23) mg/dl Creatinine 0.29 L (0.6-1.2) mg/dl BUN/Creatinine Ratio (10-20) Glucose 128 H (70-99(Fasting)) mg/dl Osmolality (280-300) mOsm/kg Calcium 7.8 L (8.6-10.3) mg/dl Magnesium (1.7-2.4) mg/dl Total Bilirubin 1.2 H (0.2-1.0) mg/dl AST 43 H (13-39) U/L Alkaline Phosphatase (34-104) U/L Total Protein 5.8 L (6.0-8.3) gm/dl Albumin 3.2 L (3.4-5.0) gm/dl Vitamin B12 1087 H (180-914) pg/ml Urine Appearance (Clear) Urine Protein (Negative) Urine Ketones (Negative) Urine Bilirubin (Negative) Ur Leukocyte Esterase (Negative) Urine WBC (Auto) (0-5) /hpf U Epithel Cells (Auto) (0-2) /hpf Urine Bacteria (Auto) (None Seen) Urine Mucus (None Prsent) Urine Osmolality (500-800) mOsm/kg PG Care Time/CCT Total # of Minutes Spent Total Time Spent with Patient: Total time spent is greater than 50% in coordination of care (as documented) at patient's floor/unit and/or counseling patient: Coding Level of Care Code 55087 SUB INP/OBS CARE 2/35MIN Diagnoses Abdominal ascites R18.8 Acute hyponatremia E87.1
--- NOTE | 2024-12-23 15:08 | Ultrasound Report ---
ULTRASOUND-GUIDED PARACENTESIS CLINICAL HISTORY: Ascites PROCEDURE: Procedure and risks were explained. Informed consent was obtained. A final timeout was com pleted. The abdomen was prepped and draped in sterile fashion. 1% lidocaine was utilized for skin ane sthesia. Utilizing ultrasound guidance, a 5 Italian safety centesis catheter was advanced into the left lower q uadrant pocket of ascites. Ultrasound images were obtained. A total of 3.2 L of ascites fluid was rem domi, with 1 L sent to the lab for analysis. The catheter was removed and Band-Aid applied. The patie nt tolerated the procedure well. Vital signs will be monitored postprocedure. IMPRESSION: Ultrasound-guided paracentesis as above. Performed, dictated, and signed by Gama Hdz PA-C; to be co-signed by Dr. Alberto Thao. Electronically signed by: Alberto Thao M.D. 12/23/2024 3:59 PM
[2024-12-23] MEDS: POTASSIUM CHLORIDE CRTAB 20 MEQ TABCR PO STA (15:56)
[2024-12-23 16:14] LABS: Albumin Peritoneal Fluid < 1.5 gm/dl; Amylase Peritoneal Fluid 15 U/L
[2024-12-23 16:17] LABS: Glucose Peritoneal Fluid 128 mg/dl; LDH Peritoneal Fluid 55 U/L; Lipase Peritoneal Fluid 42 U/L; Total Protein Peritoneal Fluid < 3.0 gm/dl
[2024-12-23 16:52] LABS: Appearance Peritoneal Fluid Clear; Color Peritoneal Fluid Yellow; RBC Peritoneal Fluid Auto < 2000 /uL; WBC Peritoneal Fluid Auto 131 /ul (0-300)
[2024-12-24 07:08] LABS: Lymphocytes, Fluid 47 %; Mono,Macrophage,Mesothelial 43 %; Neutrophils, Fluid 10 %
[2024-12-24 08:02] VITALS: RESP 18
[2024-12-24 08:16] LABS: Hematocrit (blood only) 33.7 % (37.0-47.0); Hemoglobin 11.9 g/dl (12.0-16.0); Mean Corpuscular Hemoglobin 37.4 pg (25.0-34.0); Mean Corpuscular Hgb Conc 35.3 g/dL (32.0-36.0); Mean Platelet Volume 11.3 fL (9.4-12.4); Platelet Count 157 K/uL (130-400); RDW Coefficient of Variation 11.8 % (11.5-14.5); RDW Standard Deviation 46.7 fL (36.4-46.3); Red Blood Count 3.18 M/uL (4.20-5.40); White Blood Count 6.17 K/ul (4.8-10.8)
[2024-12-24 08:40] LABS: BUN Creatinine Ratio 23.3 (10-20); Bilirubin,Total 1.1 mg/dl (0.2-1.0); Calcium 8.2 mg/dl (8.6-10.3); Creatinine Clr Calc Pharmacy 182.5 ml/min; Globulin 2.9 gm/dl (2.5-4.0); Magnesium 1.4 mg/dl (1.7-2.4); Potassium 3.4 mmol/L (3.5-5.1); Total Protein 5.9 gm/dl (6.0-8.3)
[2024-12-24] MEDS: FUROSEMIDE 20 MG TAB PO SCH (09:21)
[2024-12-24] MEDS: SPIRONOLACTONE 25 MG TAB PO SCH (09:21)
[2024-12-24] MEDS: POTASSIUM CHLORIDE CRTAB 20 MEQ TABCR PO STA (09:21)
--- NOTE | 2024-12-24 10:16 | Gastroenterology Progress Note ---
Date of Service December 24, 2024 Assessment & Plan (1) Cirrhosis of liver: Plan: 49 year old female presenting w/ abdominal distention, CT imaging concerning for new diagnosis of cirrhosis w/ large amount of ascites. No SBP, SAAG 1.5, total peritoneal protein less than 3, cirrhosis w/ portal HTN likely cause of ascites. E-lytes improved today - No GI contraindication to low NA diet - No GI contraindication to discharge - Please refer to [facility]ology at time of discharge to establish care - Recommend starting low dose Lasix/Aldactone - Lasix 20 mg once daily - Aldactone 50 mg once daily - MELD 10 - Follow liver serology - Establish w/ hepatology as an OP - MELD labs every 6 months - ABD imaging w/ AFP every 6 months - EGD every 1-2 years - No ETOH - No NSAIDs - Avoid hepatotoxin - Low NA diet, less than 2G daily - Less than 2G acetaminophen containing products daily I spent a total of 40 minutes on the date of service in review of patient's record, and previously obtained information in person and appropriate medical visit, discussion and education of plan, with patient and/or caregiver, placing orders for tests/referral/procedures as medically necessary and documentation of pertinent clinical information in patient's medical records for their visit today. Admission and Anticipated Discharge Date Admission Date: December 22, 2024 Supervising Physician Co-Signing Physician Notes I personally saw and examined the patient. I have reviewed the chart and agree with the documentation provided by the TAX REVENUE OFFICER including discussion about the assessment, treatment and plan. Briefly, 49-year-old with cirrhosis and ascites hyponatremia and hypokalemia that is improved. Start low-dose diuretics Lasix 20 Aldactone 50, 2000 mg sodium diet, and follow-up with Dr. Armenta outpatient Subjective Feeling well. S/P paracentesis - tolerating diet. No nausea/vomiting. Had some gas pains last evening. Passed a BM and improved. No black or bloody stool. NA 134 K 3.4 No SBP SAAG 1.5, total peritoneal protein less than 3, cirrhosis w/ portal HTN likely cause of ascites Review of Systems Review of Systems: All other findings negative except as noted in HPI. Physical Exam Constitutional: WD/WN, vitals as above Respiratory: normal respiratory effort, lungs clear to auscultation Cardiovascular: RRR, no murmur, no edema Gastrointestinal (Abdomen): normal bowel sounds, soft, nontender, no hepatosplenomegaly Skin: no rashes, warm and dry Results & Data Results & Data Vital Signs (Past 12 Hours) Vital Signs Temp Pulse Pulse Resp BP Pulse Ox O2 Del Method 12/24/24 08:01 98.1 F 73 18 102/74 95 Room Air 12/24/24 06:45 78 12/24/24 02:56 99.3 F 88 16 100/69 91 Room Air 12/23/24 23:59 86 12/23/24 22:32 98.8 F 95 H 16 104/72 95 Room Air Laboratory Results 12/24/24 12/23/24 Range/Units 07:25 Unknown WBC 6.17 (4.8-10.8) K/ul RBC 3.18 L (4.20-5.40) M/uL Hgb 11.9 L (12.0-16.0) g/dl Hct 33.7 L (37.0-47.0) % MCV 106.0 H (80.0-100.0) fL MCH 37.4 H (25.0-34.0) pg MCHC 35.3 (32.0-36.0) g/dL RDW Std Deviation 46.7 H (36.4-46.3) fL RDW Coeff of Rip 11.8 (11.5-14.5) % Plt Count 157 (130-400) K/uL MPV 11.3 (9.4-12.4) fL Sodium 134 L (136-145) mmol/L Potassium 3.4 L (3.5-5.1) mmol/L Chloride 98 (98-107) mmol/L Carbon Dioxide 32 (21-32) mmol/L Anion Gap 4 (3-11) BUN 7 (6-23) mg/dl Creatinine 0.30 L (0.6-1.2) mg/dl Est Cr Clr Drug Dosing 182.5 ml/min eGFR 128.35 BUN/Creatinine Ratio 23.3 H (10-20) Glucose 111 H (70-99(Fasting)) mg/dl Calcium 8.2 L (8.6-10.3) mg/dl Magnesium 1.4 L (1.7-2.4) mg/dl Total Bilirubin 1.1 H (0.2-1.0) mg/dl AST 49 H (13-39) U/L ALT 14 (7-52) U/L Alkaline Phosphatase 72 (34-104) U/L Total Protein 5.9 L (6.0-8.3) gm/dl Albumin 3.0 L (3.4-5.0) gm/dl Globulin 2.9 (2.5-4.0) gm/dl Albumin/Globulin Ratio 1.0 (0.9-2) Fluid Neutrophils % 10 % Fluid Lymphocytes % 47 % Fluid [place] % 43 % Fluid Comment Peritoneal Color Yellow Peritoneal Appearance Clear Peritoneal WBC (Auto) 131 (0-300) /ul Peritoneal RBC (Auto) < 2000 /uL Peritoneal Tot Protein < 3.0 gm/dl Peritoneal Albumin < 1.5 gm/dl Peritoneal LDH 55 U/L Peritoneal Glucose 128 mg/dl Peritoneal Amylase 15 U/L Peritoneal Lipase 42 U/L Peritoneal Triglycerid Pending PG Care Time/CCT Total # of Minutes Spent Total Time Spent with Patient: Total time spent is greater than 50% in coordination of care (as documented) at patient's floor/unit and/or counseling patient: Coding Level of Care Code 18475 SUB INP/OBS CARE 2/35MIN Diagnoses Cirrhosis of liver K74.60
--- NOTE | 2024-12-24 11:13 | Electrocardiogram Report ---
Test Reason : Blood Pressure : */* mmHG Vent. Rate : 94 BPM Atrial Rate : 94 BPM P-R Int : 132 ms QRS Dur : 74 ms QT Int : 402 ms P-R-T Axes : 81 85 59 degrees QTcB Int : 502 ms Normal sinus rhythm Low voltage QRS Prolonged QT Abnormal ECG No previous ECGs available Confirmed by Cruz Liu ([id number]) on 12/24/2024 11:13:36 AM Referred By: REFERRED SELF Confirmed By: Cruz Liu
[2024-12-24 11:27] VITALS: BP 118/73; PULSE 99; TEMP 97.7; O2SAT 96
--- NOTE | 2024-12-24 12:05 | Discharge Summary ---
Date of Service December 24, 2024 Admission HPI Per Admitting Provider 49-year-old female presenting with 2 weeks of increase of abdominal swelling. No abdominal pain or nausea or vomiting or diarrhea. No trauma. No swelling of the legs or arms. Denies chest pain. States maybe with little short of breath on exertion. Denies history of prior abdominal swelling like this. No fevers or cough or cold reported. Was seen by her primary doctor about 3 weeks ago for bronchitis and was one antibiotic and steroid for bronchitis,this has resolved. History of alcohol use but states has been sober for the past 42 days. Patient says she stopped drinking due to abdominal pain and increasing abdominal girth. Initially she had some anxiety perhaps some mild hallucinations but did not seek medical care. She currently suffers from early satiety with food intake reported. Has not been measuring her weights. She is a chronic daily smoker Has macrocytosis, profound hypokalemia replete and magnesium repleat and recheck Principal Diagnosis Alcoholic cirrhosis with ascites Hyponatremia Hypokalemia Discharge Exam General: Awake, conversant Heart: S1, S2/regular rate and rhythm, no murmur rubs or gallops Lungs: Clear to auscultation bilaterally. Normal effort Abdomen: Soft/nontender/distended abdomen with shifting dullness. Positive bowel sounds Extremities: No clubbing/cyanosis. No edema Behavior: Appropriate, cooperative Discharge Data Allergies Allergy/AdvReac Type Severity Reaction Status Date / Time nitrofurantoin Allergy Unknown Unknown Verified 12/22/24 21:14 [From Macrobid] Consultations 12/22/24 17:43 ED Decision to Admit Stat 12/22/24 19:07 Consult Gastroenterology Stat Ordered Studies Abdomen/Pelvis CT 12/22/24 14:09 CT SCAN OF THE ABDOMEN AND PELVIS WITH IV CONTRAST CLINICAL HISTORY: Abdominal swelling. COMPARISON STUDY: None. TECHNIQUE: Following the IV administration of 90 cc of Optiray 320, CT scan of the abdomen and pelvis is performed from the lung bases to the proximal femora. Images are reviewed in the axial, sagittal, and coronal planes. IV contrast was administered without complication. A dose lowering technique was utilized adhering to the principles of ALARA. CT DOSE: 606.31 mGy.cm FINDINGS: Visualized lung bases are unremarkable. No pneumatosis, free air or portal venous gas is present. The liver is mildly enlarged and heterogeneous with enlargement of the caudate lobe. There is nodularity of the liver surface indicative of cirrhosis. There is probable hepatic steatosis. No well-defined hepatic lesions are identified although sensitivity for detection of hypervascular lesions is diminished on portal venous phase exam. The main, left and right portal veins are patent. The size of the spleen is normal. Large volume ascites is present. Small abdominal varices are present including esophageal varices. The adrenal glands, kidneys and pancreas are normal. No hydronephrosis. Gallbladder wall thickening is likely related to cirrhosis. There is wall thickening of the ascending colon and rectum. There is colonic diverticulosis without evidence for acute diverticulitis. There is no evidence for a bowel obstruction. Moderate plaque within the abdominal aorta. IMPRESSION: 1. Hepatic steatosis and cirrhotic liver with manifestations of portal hypertension including large volume ascites and small varices. 2. Right colon wall thickening and possible rectal wall thickening. This is likely related to portal hypertension although a nonspecific colitis could layla ear similar. 3. No bowel obstruction. 4. Colonic diverticulosis. No evidence for acute diverticulitis. ACT 112: Negative or not required by law. Electronically signed by: John Arroyo M.D. 12/22/2024 3:36 PM Paracentesis Ultrasound 12/23/24 08:00 ULTRASOUND-GUIDED PARACENTESIS CLINICAL HISTORY: Ascites PROCEDURE: Procedure and risks were explained. Informed consent was obtained. A final timeout was completed. The abdomen was prepped and draped in sterile fashion. 1% lidocaine was utilized for skin anesthesia. Utilizing ultrasound guidance, a 5 [place]ik safety centesis catheter was advanced into the left lower quadrant pocket of ascites. Ultrasound images were obtained. A total of 3.2 L of ascites fluid was removed, with 1 L sent to the lab for analysis. The catheter was removed and Band-Aid applied. The patient tolerated the procedure well. Vital signs will be monitored postprocedure. IMPRESSION: Ultrasound-guided paracentesis as above. Performed, dictated, and signed by Gama Hdz PA-C; to be co-signed by Dr. Alberto Thao. Electronically signed by: Alberto Thao M.D. 12/23/2024 3:59 PM 12/22/24 14:09 CT abd pelvis IV con only Stat 12/23/24 08:00 IR paracentesis abd w/img US Routine Hospital Course (1) Abdominal ascites: (2) Acute hyponatremia: Plan 49-year-old female history of alcohol abuse presents with increasing abdominal girth and found to have ascites on presentation. She has significant associate electrolyte abnormalities including hyponatremia hypokalemia magnesium is currently pending. Steatosis and cirrhosis are seen on CT imaging, Meld score is 18 points with 6% 3 month mortality # Alcoholic cirrhosis with ascites IR guided paracentesis completed on 12/23 GI involved MELD score was 10 Hepatitis serology, ceruloplasmin. iron, pending Low-sodium diet started Patient was started on 20 mg of Lasix and 50 mg of Aldactone Patient does not want to stay in the hospital any longer, requesting discharge She was advised to quit drinking completely. She claims to have quit for about 45 days ago Patient will need MELD labs every 6 months, abdominal imaging with AFP every 6 months, EGD every 1 to 2 years Patient will need to establish outpatient hepatology. Nurse navigator sent out a referral. Hepatology will communicate with the patient to schedule an appointment Patient will need to follow-up with her PCP #alcohol use, reportedly no use for some time, macrocytosispatient has been advised to quit drinking completely #hyponatremia, improved Potassium was replaced Patient was deemed stable for discharge. GI has cleared her for discharge as well. She will need close follow-up with PCP as she has been started on some diuretics. She will also need outpatient hepatology referral Total Time Total Time Spent Total Time Spent (In Minutes): 35 Discharge Plan Discharge Items Patient Disposition: Home - Self-Care Reason For Visit: ASCITES,ABDOMINAL PAIN Discharge Diagnosis: Alcoholic cirrhosis with ascites Hyponatremia Hypokalemia Condition on Discharge: Fair Activity: Resume your previous activity Non-emergency contact: Primary Care Provider Call non-emergency contact if: you have any medication questions and your s ymptoms worsen Follow-up/Referrals: Tasha Kc DO [Primary Care Provider] - 01/01/25 11:00 am Diet: Low Sodium (2gm) Addtl Attending Provider Instructions: Advised to note that you are diagnosed with alcoholic liver cirrhosis with ascites Advised on alcohol cessation He will need close follow-up with your PCP will need a referral to hepatology outpatient. Pending Studies at Discharge: Yes Studies:: Hepatitis panel, acetic fluid analysis labs Stand-Alone Forms: [employer], Smoking Cessation Medications and DC Order Prescriptions: New spironolactone 25 mg Tablet 50 mg PO QAM 30 Days Qty: 60 0RF furosemide 20 mg Tablet 20 mg PO QAM 30 Days Qty: 30 0RF Continued calcium acetate 800 tab PO HS multivitamin tablet 1 tab PO HS turmeric root extract 500 mg capsule 1,000 mg PO DAILY omega-3 fatty acids-fish oil 684-1,200 mg Capsule,Delayed Release(Dr/Ec) 1 cap PO HS elderberry fruit 350 mg Capsule 350 mg PO HS albuterol sulfate 5 mg/mL solution for nebulization 2.5 mg inhalation Q6H PRN (Reason: Shortness Of Breath Or Wheezing) Discharge Orders: Discharge Order (Routine); Ordered 12/24/24 Ordered By: Dylan Junior/Other Patient Handouts: Treating Cirrhosis Admission Data Admit Date/Time: 12/22/24 17:57 Attending Provider: Dylan Jordan Admit Provider: Mo Bojorquez Primary Care Provider: Tasha Kc Other Providers: Jesus Lopez; Mo Bojorquez Other Interventions: Discharge Summary Assessment (RN) Last Done: 12/24/24 12:34
[2024-12-24 15:37] LABS: Ceruloplasmin 22 mg/dL (14-48); Hepatitis A Antibody IgM NON-REACTIVE (NON-REACTIVE); Hepatitis B Core Antibody IgM NON-REACTIVE (NON-REACTIVE)
== END 2024-12-24 13:12 | disposition home or self-care (01) | DRG 433 ==
LOC: ED 13:35 → 2N 17:57 → SUATTDRO 17:57 → 2N 20:27